=== PATIENT | female | born 2000 | race African-American/Black ===

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

== ENCOUNTER 2021-01-13 11:58 | Emergency (ER) | payer MEDICAID | END 2021-01-13 13:47 | LOC: ERS 11:58 | DX: O99.891 Other specified diseases and conditions complicating pregnancy (principal); J02.9 Acute pharyngitis, unspecified; Z3A.14 14 weeks gestation of pregnancy | CPT/HCPCS: 87081; 87430; 99283 ==

== ENCOUNTER 2021-03-17 15:30 | Emergency (ER) | payer OTHER | END 2021-03-17 18:15 | disposition home or self-care (01) | LOC: ERS 15:30 | DX: O99.891 Other specified diseases and conditions complicating pregnancy (principal); R07.89 Other chest pain; Z3A.19 19 weeks gestation of pregnancy | CPT/HCPCS: 99283 ==

== ENCOUNTER 2021-04-16 00:37 | Emergency (ER) | payer OTHER ==
[2021-04-16 17:19] LABS: SARS-CoV-2 PCR by NAA DETECTED (NotDetected)
== END 2021-04-16 01:12 | disposition home or self-care (01) ==
LOC: ERS 00:37
DX: U07.1 COVID-19 (principal); J06.9 Acute upper respiratory infection, unspecified
CPT/HCPCS: U0003; U0005

== ENCOUNTER 2023-04-16 15:12 | Emergency (ER) | payer OTHER, SELFPAY | END 2023-04-16 16:38 | disposition home or self-care (01) | LOC: ERS 15:12 | DX: S20.211A Contusion of right front wall of thorax, initial encounter (principal); M94.0 Chondrocostal junction syndrome [Tietze] | CPT/HCPCS: 71045 ==